=== PATIENT | female | born 1955 | race Caucasian/White ===

== ENCOUNTER 2018-05-15 00:58 | Emergency (ER) | payer MEDICARE ==
[2018-05-15] MEDS ORDERED: Ketorolac Tromethamine 60 MG/2 ML VIAL ONE (01:18)
== END 2018-05-15 01:35 | disposition home or self-care (01) ==
LOC: MADERS 00:58
DX: G25.81 Restless legs syndrome (principal); I10 Essential (primary) hypertension; E03.9 Hypothyroidism, unspecified; F31.9 Bipolar disorder, unspecified; Z79.899 Other long term (current) drug therapy
CPT/HCPCS: 96372; J1885